=== PATIENT | female | born 1945 | race Two or more races ===

== ENCOUNTER 2018-01-30 19:50 | Emergency (ER) | payer OTHER, MEDICAID ==
[~2018-01-30] VITALS: Ht 160 cm; Wt 58.0 kg
[2018-01-30 20:11] VITALS: BP 138/75
== END 2018-01-30 20:48 | disposition left against medical advice (07) ==
LOC: ER 19:50
DX: Z53.21 Procedure and treatment not carried out due to patient leaving prior to being seen by health care provider (principal)

== ENCOUNTER 2020-10-18 19:35 | Emergency (ER) | payer OTHER, MEDICAID ==
[~2020-10-18] VITALS: Ht 157.5 cm; Wt 61.0 kg
[2020-10-18 20:58] LABS: BASOPHILS % 1.1 % (0.0-2.0); EOSINOPHILS % 3.5 % (0.0-5.0); HEMATOCRIT. 34.5 % (36.0-48.0); HEMOGLOBIN. 11.7 g/dL (12.0-16.0); LYMPHOCYTES % 31.1 % (20.0-50.0); MEAN CORPUSCULAR HEMOGLOBIN 30.3 pg (28.0-32.0); MEAN CORPUSCULAR VOLUME 89.7 fL (81.0-99.0); MEAN PLATELET VOLUME 7.8 fl (7.4-10.4); MONOCYTES % 8.2 % (2.0-8.0); NEUTROPHILS % 56.1 % (40.0-76.0); PLATELET 248 x1000/uL (130-400); RED BLOOD CELL COUNT 3.84 mill/uL (4.2-5.4); RED CELL DISTRIBUTION WIDTH 14.3 % (11.6-14.6)
[2020-10-18 21:02] LABS: CHLORIDE 107 mEq/L (98-107)
[2020-10-18 21:04] LABS: ETHANOL BLOOD < 10 mg/dL; PROTHROMBIN TIME 10.9 sec (9.6-11.0)
[2020-10-18 21:08] LABS: LDL CHOLESTEROL 121 mg/dL (5-100)
[2020-10-18] MEDS ORDERED: IOHEXOL-350 100 ML BOTTLE ONE (21:16)
[2020-10-18] MEDS ORDERED: ASPIRIN 325MG EC TABLET PO ONE (21:30)
[2020-10-18 22:59] VITALS: BP 137/62
[2020-10-18 23:22] LABS: CLARITY URINE CLEAR (CLEAR); COLOR URINE YELLOW (YELLOW); KETONES URINE NEGATIVE (NEGATIVE); LEUKOCYTE ESTERASE URINE NEGATIVE (NEGATIVE); NITRITE URINE NEGATIVE (NEGATIVE); OCCULT BLOOD URINE NEGATIVE (NEGATIVE); PH URINE 6.5 (4.5-8.0); PROTEIN URINE NEGATIVE (NEGATIVE); SPECIFIC GRAVITY URINE 1.064 (1.005-1.030); UROBILINOGEN URINE 0.2 E.U./dL (0.2-1.0)
[2020-10-18 23:32] LABS: *AMPHETAMINES SCREEN URINE NEGATIVE (NEGATIVE); *BARBITURATES SCREEN URINE NEGATIVE (NEGATIVE); *BENZODIAZEPINES SCREEN URINE NEGATIVE (NEGATIVE); *COCAINE SCREEN URINE NEGATIVE (NEGATIVE)
[2020-10-18 23:33] LABS: CANNABINOID URINE SCREEN NEGATIVE (NEGATIVE); METHADONE URINE SCREEN NEGATIVE (NEGATIVE); OPIATES URINE SCREEN NEGATIVE (NEGATIVE); PHENCYCLIDINE URINE SCREEN NEGATIVE (NEGATIVE)
== END 2020-10-18 23:12 | disposition short-term general hospital (02) ==
LOC: ER 19:35 → CANBEDREQ 10-19 02:35
DX: G45.9 Transient cerebral ischemic attack, unspecified (principal); N28.9 Disorder of kidney and ureter, unspecified; D64.9 Anemia, unspecified; I10 Essential (primary) hypertension; E78.00 Pure hypercholesterolemia, unspecified; Z98.890 Other specified postprocedural states; Z87.39 Personal history of other diseases of the musculoskeletal system and connective tissue; Z85.3 Personal history of malignant neoplasm of breast
CPT/HCPCS: 36415; 70450; 70496; 70498; 71045; 80053; 80305; 80320; 81003; 82962; 83721; 84484; 85025; 85610; 93005; 99291; Q9967; G0480

== ENCOUNTER 2023-06-15 01:30 | Inpatient (IN) | payer OTHER, MEDICAID ==
[~2023-06-15] VITALS: Ht 160 cm; Wt 57.2 kg
[2023-06-15] MEDS ORDERED: SODIUM CHLORIDE 0.9% 1,000 ML IV ONE (02:00)
[2023-06-15 02:31] LABS: BASOPHILS % 0.8 % (0.0-2.0); EOSINOPHILS % 0.1 % (0.0-5.0); HEMOGLOBIN. 12.6 g/dL (12.0-16.0); LYMPHOCYTES % 26.2 % (20.0-50.0); MEAN CORPUSCULAR HEMOGLOBIN 29.4 pg (28.0-32.0); MEAN CORPUSCULAR VOLUME 86.3 fL (81.0-99.0); MEAN PLATELET VOLUME 8.6 fl (7.4-10.4); MONOCYTES % 3.3 % (2.0-8.0); NEUTROPHILS % 69.6 % (40.0-76.0); PLATELET 389 x1000/uL (130-400); RED BLOOD CELL COUNT 4.29 mill/uL (4.2-5.4); RED CELL DISTRIBUTION WIDTH 14.8 % (11.6-14.6)
[2023-06-15 02:46] LABS: CHLORIDE 110 mEq/L (98-107)
[2023-06-15] MEDS ORDERED: IOHEXOL-350 100 ML BOTTLE ONE (06:12)
[2023-06-15] MEDS ORDERED: GUAIFENESIN 200MG/10ML SUGAR FREE UDC PO PRN (07:30)
[2023-06-15] MEDS ORDERED: ONDANSETRON HCL 4MG/2ML INJ IV PRN (07:30)
[2023-06-15] MEDS ORDERED: ZOLPIDEM TARTRATE 5MG TABLET PO PRN (07:30)
[2023-06-15] MEDS ORDERED: DOCUSATE SODIUM 100MG CAPSULE PO PRN (07:30)
[2023-06-15] MEDS ORDERED: ACETAMINOPHEN 325MG TABLET PO PRN ×2 (07:30)
[2023-06-15] MEDS ORDERED: CLONIDINE 0.1MG TABLET PO PRN (07:30)
[2023-06-15] MEDS ORDERED: LORAZEPAM 0.5MG TABLET PO PRN (07:30)
[2023-06-15] MEDS ORDERED: DIPHENHYDRAMINE 50MG/ML VIAL IV PRN (07:30)
[2023-06-15] MEDS ORDERED: NITROGLYCERIN 0.4MG TABLET SL SL PRN (07:30)
[2023-06-15] MEDS ORDERED: MAGNESIUM/ALUMINUM HYDROXIDE/SIMETHICONE 30ML UDC PO PRN (07:30)
[2023-06-15] MEDS ORDERED: IPRATROPIUM/ALBUTEROL 0.5-3(2.5)MG/3ML NEB HHN PRN (07:30)
[2023-06-15] MEDS ORDERED: PIPERACILLIN/TAZ 3.375G PREMIX 50 ML IV NR (08:00)
[2023-06-15 08:23] LABS: PROTHROMBIN TIME 10.7 sec (9.6-11.0)
[2023-06-15 08:25] LABS: CLARITY URINE CLEAR (CLEAR); COLOR URINE YELLOW (YELLOW); KETONES URINE TRACE (NEGATIVE); LEUKOCYTE ESTERASE URINE NEGATIVE (NEGATIVE); NITRITE URINE NEGATIVE (NEGATIVE); OCCULT BLOOD URINE NEGATIVE (NEGATIVE); PROTEIN URINE NEGATIVE (NEGATIVE); UROBILINOGEN URINE 0.2 E.U./dL (0.2-1.0)
[2023-06-15] MEDS ORDERED: VANCOMYCIN 1G PREMIX 200 ML IV SCH (08:30)
[2023-06-15] MEDS ORDERED: ASPIRIN 325MG EC TABLET PO NR (08:30)
[2023-06-15 08:35] LABS: ETHANOL BLOOD < 10 mg/dL (-10)
[2023-06-15 08:36] LABS: *AMPHETAMINES SCREEN URINE NEGATIVE (NEGATIVE); *BARBITURATES SCREEN URINE NEGATIVE (NEGATIVE); *BENZODIAZEPINES SCREEN URINE NEGATIVE (NEGATIVE); *COCAINE SCREEN URINE NEGATIVE (NEGATIVE); CANNABINOID URINE SCREEN NEGATIVE (NEGATIVE); METHADONE URINE SCREEN NEGATIVE (NEGATIVE); OPIATES URINE SCREEN NEGATIVE (NEGATIVE); PHENCYCLIDINE URINE SCREEN NEGATIVE (NEGATIVE)
[2023-06-15 08:57] LABS: VITAMIN B12 SERUM 634 pg/mL (211-911)
[2023-06-15] MEDS ORDERED: PANTOPRAZOLE SODIUM 40 MG/VIAL IV SCH (09:00)
[2023-06-15] MEDS ORDERED: ENOXAPARIN 40MG/0.4ML SYR SUBCUT SCH (09:00)
[2023-06-15 10:20] LABS: PHOSPHORUS 2.9 mg/dL (2.5-4.9); T4 FREE 1.02 ng/dL (0.76-1.46)
[2023-06-15] MEDS ORDERED: DEXTROSE 50% WATER 50ML SYRINGE IV PRN (10:30)
[2023-06-15] MEDS: LEVOTHYROXINE SODIUM 25MCG TABLET PO SCH (12:00)
[2023-06-15] MEDS: INSULIN LISPRO 100 UNITS/ML SUBCUT SCH ×3 (12:43→21:00)
[2023-06-15] MEDS: BLOOD SUGAR DIAGNOSTIC STRIP TEST SCH ×3 (12:43→21:00)
[2023-06-15 13:00] VITALS: BP 147/68; PULSE 66; RESP 16; TEMP 97.8
[2023-06-15 16:00] VITALS: BP 110/62; PULSE 68; RESP 16; TEMP 97.3
[2023-06-15] MEDS ORDERED: DIGO125T80 MT (17:20)
[2023-06-15] MEDS ORDERED: LEVO100T MT (17:20)
[2023-06-15] MEDS ORDERED: ASPI-1497 MT (17:20)
[2023-06-15] MEDS ORDERED: LOSA25TA26 MT (17:20)
[2023-06-15] MEDS: PIPERACILLIN/TAZOBACTAM 3.375G in DEXT 5% WATER 50ML IV SCH ×2 (17:52→23:00)
[2023-06-15 18:16] LABS: CREATINE KINASE MB FRACTION 3.6 ng/mL (0.5-3.6)
[2023-06-15 20:00] VITALS: BP 117/60; PULSE 63; RESP 16; TEMP 96.9
[2023-06-15] MEDS: APIXABAN 5 MG TABLET PO SCH (21:00)
[2023-06-15] MEDS: ATORVASTATIN CALCIUM 40MG TABLET PO SCH (21:00)
[2023-06-15] MEDS: METOPROLOL TARTRATE 25MG TABLET PO SCH (21:00)
[2023-06-16] VITALS: BP_SYST 128; BP_SYST 148; BP_DIAS 61; BP_DIAS 66; PULSE 60; PULSE 66; RESP 18; TEMP 96.6; TEMP 97.1
[2023-06-16] MEDS ORDERED: VANCOMYCIN 750MG PREMIX 150 ML IV SCH
[2023-06-16 02:31] LABS: CREATINE KINASE MB FRACTION 2.3 ng/mL (0.5-3.6)
[2023-06-16] MEDS: PIPERACILLIN/TAZOBACTAM 3.375G in DEXT 5% WATER 50ML IV SCH ×2 (06:05→13:51)
[2023-06-16] MEDS: INSULIN LISPRO 100 UNITS/ML SUBCUT SCH ×4 (07:40→21:00)
[2023-06-16 07:50] VITALS: BP 148/69; PULSE 51; RESP 16; TEMP 97.7
[2023-06-16] MEDS: BLOOD SUGAR DIAGNOSTIC STRIP TEST SCH ×4 (07:54→21:00)
[2023-06-16 08:00] LABS: HEMOGLOBIN 11.1 g/dL (12.0-16.0); MEAN CORPUSCULAR HEMOGLOBIN 29.3 pg (28.0-32.0); MEAN CORPUSCULAR VOLUME 87.1 fL (81.0-99.0); PLATELET 330 x1000/uL (130-400); RED CELL DISTRIBUTION WIDTH 14.8 % (11.6-14.6)
[2023-06-16] MEDS: FAMOTIDINE 20MG TABLET PO SCH (08:39)
[2023-06-16] MEDS: APIXABAN 5 MG TABLET PO SCH (08:40)
[2023-06-16] MEDS: LEVOTHYROXINE SODIUM 25MCG TABLET PO SCH (08:40)
[2023-06-16] MEDS: METOPROLOL TARTRATE 25MG TABLET PO SCH ×2 (08:40→21:35)
[2023-06-16 08:51] LABS: PHOSPHORUS 3.8 mg/dL (2.5-4.9)
[2023-06-16 14:37] VITALS: BP 129/60; PULSE 60; RESP 16; TEMP 98.6
[2023-06-16 16:30] VITALS: BP 161/69; PULSE 6; PULSE 60; RESP 16; TEMP 98
[2023-06-16 16:59] VITALS: BP 134/66; PULSE 63
[2023-06-16] MEDS: ENOXAPARIN 60MG/0.6ML SYR SUBCUT SCH (17:26)
[2023-06-16 19:42] VITALS: BP 134/67; PULSE 60; RESP 16; TEMP 97.7
[2023-06-16] MEDS: ATORVASTATIN CALCIUM 40MG TABLET PO SCH (21:34)
[2023-06-16 22:20] LABS: HEMATOCRIT 35.9 % (36.0-48.0); HEMOGLOBIN 12.2 g/dL (12.0-16.0); MEAN CORPUSCULAR HEMOGLOBIN 29.8 pg (28.0-32.0); MEAN CORPUSCULAR VOLUME 87.2 fL (81.0-99.0); PLATELET 347 x1000/uL (130-400); RED BLOOD CELL COUNT 4.11 mill/uL (4.2-5.4); RED CELL DISTRIBUTION WIDTH 14.6 % (11.6-14.6)
[2023-06-16 22:34] LABS: CHLORIDE 110 mEq/L (98-107)
[2023-06-16 22:38] LABS: PHOSPHORUS 3.9 mg/dL (2.5-4.9)
[2023-06-17] VITALS: BP_SYST 148; BP_SYST 152; BP_DIAS 61; BP_DIAS 66; PULSE 63; PULSE 66; RESP 16; RESP 18; TEMP 97.1; TEMP 97.9
[2023-06-17 04:24] VITALS: BP 152/61; PULSE 63; RESP 16; TEMP 98.9
[2023-06-17] MEDS: LEVOTHYROXINE SODIUM 25MCG TABLET PO SCH (06:48)
[2023-06-17] MEDS: INSULIN LISPRO 100 UNITS/ML SUBCUT SCH ×3 (06:49→16:49)
[2023-06-17] MEDS: BLOOD SUGAR DIAGNOSTIC STRIP TEST SCH ×3 (06:49→16:48)
[2023-06-17] MEDS: ENOXAPARIN 60MG/0.6ML SYR SUBCUT SCH ×2 (06:49→17:35)
[2023-06-17 08:00] VITALS: BP 137/59; PULSE 60; RESP 16; TEMP 96.4
[2023-06-17 08:13] LABS: HEMATOCRIT 37.6 % (36.0-48.0); HEMOGLOBIN 12.8 g/dL (12.0-16.0); MEAN CORPUSCULAR HEMOGLOBIN 29.6 pg (28.0-32.0); MEAN CORPUSCULAR VOLUME 87.1 fL (81.0-99.0); PLATELET 331 x1000/uL (130-400); RED BLOOD CELL COUNT 4.32 mill/uL (4.2-5.4); RED CELL DISTRIBUTION WIDTH 14.5 % (11.6-14.6)
[2023-06-17 08:45] LABS: CHLORIDE 109 mEq/L (98-107)
[2023-06-17 08:50] LABS: PHOSPHORUS 3.8 mg/dL (2.5-4.9)
[2023-06-17] MEDS: FAMOTIDINE 20MG TABLET PO SCH (08:51)
[2023-06-17] MEDS: METOPROLOL TARTRATE 25MG TABLET PO SCH (08:53)
[2023-06-17] MEDS ORDERED: AMLODIPINE 5MG TABLET PO SCH (09:00)
[2023-06-17 12:00] VITALS: BP 124/64; PULSE 61; RESP 16; TEMP 96.8
[2023-06-17 16:00] VITALS: BP 121/68; PULSE 67; RESP 18; TEMP 97
[2023-06-17 20:49] VITALS: BP 129/71; PULSE 70; TEMP 98.6; O2SAT 97
== END 2023-06-17 21:29 | disposition short-term general hospital (02) | DRG 282 ==
LOC: ER 01:33 → 8WST 04:51
PROVIDERS: ADMIT Internal Medicine; ATTEND Internal Medicine
DX: I48.0 Paroxysmal atrial fibrillation (principal); I21.A1 Myocardial infarction type 2; I47.1 Supraventricular tachycardia; I48.92 Unspecified atrial flutter; E78.5 Hyperlipidemia, unspecified; E03.9 Hypothyroidism, unspecified; E78.00 Pure hypercholesterolemia, unspecified; M19.90 Unspecified osteoarthritis, unspecified site; I10 Essential (primary) hypertension; I44.0 Atrioventricular block, first degree; Z85.3 Personal history of malignant neoplasm of breast; Z90.12 Acquired absence of left breast and nipple; Z82.49 Family history of ischemic heart disease and other diseases of the circulatory system
CPT/HCPCS: 36415; 71045; 71275; 80048; 80053; 80061; 80305; 80320; 81003; 82040; 82550; 82553; 82607; 82746; 82962; 83036; 83540; 83550; 83605; 83735; 83880; 84100; 84145; 84439; 84443; 84484; 85025; 85027; 85379; 93005; 93970; 99291; C9113; J1200; J1650; J2543; J3370; J7030; J7060; Q9967; G0480